=== PATIENT | female | born 1995 | race Caucasian/White ===

== ENCOUNTER 2019-08-16 15:35 | Emergency (ER) | payer OTHER ==
[~2019-08-16] VITALS: Ht 177.8 cm; Wt 71.2 kg
[2019-08-16] MEDS ORDERED: PREDNISONE 20 M20 MG PO (17:07)
[2019-08-16] MEDS ORDERED: ZANTAC 150MG T150 MG PO (17:07)
[2019-08-16 17:30] VITALS: BP 110/82
== END 2019-08-16 17:30 | disposition home or self-care (01) ==
LOC: ER 15:35
DX: L50.9 Urticaria, unspecified (principal)

== ENCOUNTER 2019-08-18 03:11 | Emergency (ER) | payer OTHER ==
[~2019-08-18] VITALS: Ht 177.8 cm; Wt 71.2 kg
[~2019-08-18 03:11] MED LIST: PREDNISONE 20 M20 MG PO; ZANTAC 150MG T150 MG PO
[2019-08-18 05:35] VITALS: BP 112/69
--- NOTE | 2019-08-18 13:31 | EKG ---
[address] [address] ELECTROCARDIOGRAM REPORT Name: SHANI JOHNSON Room #: DEP Geetha#: [id number] Admission: 08/18/19 Attend Phys: Discharge: 08/18/19 Date of : [birth year] Report #: [id number] THIS REPORT FOR: //name// [facility] ED Test Date: 2019-08-18 Test Time: 04:18:50 Pat Name: SHANI JOHNSON Department: Room: Gender: F Machine Loader: ZITA : 1995 Requested By: Luis Spring Order Number: [id number] MD: Rodolfo Quintero Measurements Intervals [place] Rate: 79 P: 56 VT: 126 QRS: 72 QRSD: 103 T: 51 QT: 404 QTc: 464 Interpretive Statements Sinus rhythm Normal tracing No previous ECG available for comparison Electronically Signed On 08-18-2019 13:31:00 CDT by Rodolfo Quintero [email or web address] <ELECTRONICALLY SIGNED> By: Rodolfo Quintero MD, [facility] 08/18/19 1331 0418 0418 Rodolfo Quintero MD, FACC /EPI
== END 2019-08-18 05:37 | disposition home or self-care (01) ==
LOC: ER 03:11
DX: R07.9 Chest pain, unspecified (principal); Z88.1 Allergy status to other antibiotic agents